=== PATIENT | male | born 1995 | race Caucasian/White ===

== ENCOUNTER 2020-06-17 13:23 | Outpatient (REF) | payer OTHER, SELFPAY | END 2020-06-17 13:24 | disposition home or self-care (01) | LOC: HO.HMGCLDS 13:23 | PROVIDERS: Visit Provider Internal Medicine | DX: Z20.828 Contact with and (suspected) exposure to other viral communicable diseases (principal) | CPT/HCPCS: C9803; U0003 ==

== ENCOUNTER 2021-07-31 09:35 | Outpatient (REF) | payer OTHER, SELFPAY ==
[2021-07-31 10:17] LABS: Appearance Urine CLEAR; Color Urine YELLOW; Glucose Urine UA NEG (NEG); Leukocyte Esterase Urine NEG (NEG); Nitrite Urine NEG (NEG); PH 5.5 (5.0-8.0); Specific Gravity - Urine >= 1.030 (1.005-1.025); Urine Blood NEG (NEG); Urine Ketones NEG (NEG); Urine Protein NEG (NEG-TRACE)
[2021-07-31 10:34] LABS: Hematocrit 45.6 % (42.0-52.0); Mean Corpuscular HGB Conc 35.1 g/dl (31.0-36.0); Mean Corpuscular Hemoglobin 30.4 pg (27.0-33.0); Mean Corpuscular Volume 86.7 fL (80.0-98.0); Mean Platelet Volume 8.9 fL (9.4-12.4); Platelet Count 235 X10*3/uL (160-400); Red Blood Count 5.26 X10*6/uL (4.60-5.80); Red Cell Distribution Width 11.7 % (11.0-16.0); White Blood Count 6.8 X10*3/uL (4.8-10.8)
[2021-07-31 11:20] LABS: Alanine Aminotransferase 26 U/L (0-40); Albumin Level 4.7 g/dL (3.5-5.0); Alkaline Phosphatase 38 U/L (39-117); Anion Gap 10 (12-20); Aspartate Amino Transferase 16 U/L (5-37); Bilirubin Direct 0.3 mg/dL (0.0-0.5); Bilirubin Total 0.7 mg/dL (0.0-1.0); Blood Urea Nitrogen 15 mg/dL (9-16); Calcium 9.9 mg/dL (8.4-10.2); Carbon Dioxide 30 mmol/L (22-29); Chloride 105 mmol/L (96-108); Cholesterol 169 mg/dL; Estimated Glomerular Filt Rate > 60; Glucose Random 72 mg/dL (60-115); HDL Cholesterol 54 mg/dL; LDL Cholesterol Calculated 101 mg/dl; Potassium 4.1 mmol/L (3.3-5.1); Sodium 141 mmol/L (135-145); Total Protein 7.5 g/dL (6.5-8.0); Triglycerides 72 mg/dL
== END 2021-07-31 09:36 | disposition home or self-care (01) ==
LOC: HO.LAB 09:35
PROVIDERS: PCP Internal Medicine; Visit Provider Internal Medicine
DX: K92.1 Melena (principal)
CPT/HCPCS: 36415; 80048; 80061; 80076; 81003; 84443; 85027

== ENCOUNTER 2021-12-10 08:00 | Outpatient (REF) | payer OTHER, SELFPAY ==
[2021-12-10 10:24] LABS: C Reactive Protein < 0.02 mg/dL (< or = 0.50)
[2021-12-10 11:00] LABS: Folate 18.1 ng/mL (> or = 4.0); Vitamin B12 755 pg/mL (200-900)
[2021-12-12 13:36] LABS: Transglutaminase Ab IgG <1.0 U/mL; Transglutaminase IgA <1.0 U/mL
[2021-12-15 12:36] LABS: Vitamin D 25-OH, D2 <4 ng/mL; Vitamin D 25-OH, D3 30 ng/mL; Vitamin D 25-OH, Total 30 ng/mL (30-100)
== END 2021-12-10 08:01 | disposition home or self-care (01) ==
LOC: HO.LAB 08:00
PROVIDERS: PCP Internal Medicine; Referring Provider Internal Medicine; Visit Provider Nurse Practitioner Family
DX: R10.9 Unspecified abdominal pain (principal); K58.2 Mixed irritable bowel syndrome; K62.5 Hemorrhage of anus and rectum; E55.9 Vitamin D deficiency, unspecified
CPT/HCPCS: 36415; 82306; 82607; 82746; 86140; 86364

== ENCOUNTER 2024-07-03 08:27 | Outpatient (REF) | payer OTHER, SELFPAY ==
[2024-07-03 09:15] LABS: MANUAL DIFF FLAG NO
[2024-07-03 09:35] LABS: Basophils Percent Auto 0.5 % (0-2); Eosinophils Absolute Auto 0.3 X10*3/uL (0.0-0.4); Eosinophils Percent Auto 4.3 % (0-4); Hematocrit 48.6 % (42.0-52.0); Hemoglobin 16.7 g/dl (14.0-18.0); Imm Gran Abs Auto 0.03 X10*3/uL (0.00-0.03); Imm Gran Pct Auto 0.5 % (0.0-0.4); Lymphocytes Absolute Auto 2.2 X10*3/uL (1.2-4.9); Lymphocytes Percent Auto 37.4 % (20-40); Mean Corpuscular HGB Conc 34.4 g/dl (31.0-36.0); Mean Corpuscular Hemoglobin 30.3 pg (27.0-33.0); Mean Platelet Volume 9.1 fL (9.4-12.4); Monocytes Absolute Auto 0.5 X10*3/uL (0.1-1.2); Monocytes Percent Auto 8.7 % (2-11); Neutrophils Absolute Auto 2.8 x10*3/uL (2.0-8.3); Neutrophils Percent Auto 48.6 % (45-73); Platelet Count 223 X10*3/uL (160-400); Red Blood Count 5.52 X10*6/uL (4.60-5.80); Red Cell Distribution Width 11.8 % (11.0-16.0); White Blood Count 5.8 X10*3/uL (4.8-10.8)
[2024-07-03 09:44] LABS: Estimated Average Glucose 91 mg/dL; Hemoglobin A1C 121.0612 umol/L; Hemoglobin A1c % 4.8 % (<6.0); Total Hemoglobin (HGBA1C) 4239.1016 umol/L
[2024-07-03 10:11] LABS: Erythrocyte Sedimentation Rate 1 MM/HR (0-15)
[2024-07-03 10:31] LABS: Vitamin D 25-OH Total 41.1 ng/mL (>30)
[2024-07-03 10:32] LABS: Alanine Aminotransferase 25 U/L (0-40); Alkaline Phosphatase 35 U/L (39-117); Anion Gap 13 (12-20); Aspartate Amino Transferase 27 U/L (5-37); Bilirubin Direct 0.3 mg/dL (0.0-0.5); Blood Urea Nitrogen 13 mg/dL (9-16); C Reactive Protein < 0.04 mg/dL (< or = 0.50); Calcium 9.7 mg/dL (8.4-10.2); Carbon Dioxide 28 mmol/L (22-29); Chloride 104 mmol/L (96-108); Cholesterol 166 mg/dL (<200); Estimated Glomerular Filt Rate > 60; Glucose Fasting 106 mg/dL (60-99); HDL Cholesterol 56 mg/dL (>40); LDL Cholesterol Calculated 95 mg/dL (<100); Magnesium 2.2 mg/dL (1.6-2.6); Potassium 4.1 mmol/L (3.3-5.1); Sodium 141 mmol/L (135-145); Total Protein 7.7 g/dL (6.5-8.0); Triglycerides 76 mg/dL (<150)
[2024-07-03 10:34] LABS: Folate 11.8 ng/mL (> or = 4.0); Vitamin B12 563 pg/mL (200-900)
== END 2024-07-03 08:28 | disposition home or self-care (01) ==
LOC: HO.LAB 08:27
PROVIDERS: PCP Internal Medicine; Visit Provider Physician Assistant Medical
DX: Z00.00 Encounter for general adult medical examination without abnormal findings (principal); R79.89 Other specified abnormal findings of blood chemistry; E11.9 Type 2 diabetes mellitus without complications; L60.8 Other nail disorders
CPT/HCPCS: 36415; 80053; 80061; 80076; 82248; 82306; 82607; 82746; 83036; 83735; 84443; 85025; 85652; 86140

== ENCOUNTER 2024-07-03 08:27 | Outpatient (AMB) | payer OTHER, SELFPAY ==
--- NOTE | 2024-07-03 08:28 | MHC.PC.OV ---
Vital Signs 07/03/24 08:30 Height 6 ft 3 in Weight 204 lb 8 oz BMI 25.6 BP 134/60 Blood Pressure Location Lt brachial Position Sitting Pulse 59 Pulse Source Pulse Oximeter Pulse Oximetry (%) 98 Oxygen Delivery Method Room Air Intake Visit Reasons: PE Intake Note: Patient is here today for a physical. Pt decline flu shot today. 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 per policy Accompanied by: Self / Same As Patient Allergies Sulfa (Sulfonamide Antibiotics) [SULFA (SULFONAMIDE ANTIBIOTICS)] Allergy (Unknown, Verified 07/03/24 09:06) SWELLING Medication List - Last Reconciled 07/03/24 by Kate Velazquez PA-C multivitamin (Daily Multi-Vitamin tablet) 1 tab PO DAILY Tobacco use date assessed: 07/03/24 Dental Screening Dental Screen Date: 07/03/24 Did you have a dental visit in the last 12 months?: Yes Did you have a dental problem in the last 6 months where you did not have access to dental care?: No Was dental information given to patient?: Patient has dentist [facility] Medical History (Updated 07/03/24 @ 09:08 by Kate Velazquez PA-C) Nicotine dependence Change in nail appearance Hemorrhoids IBS (irritable bowel syndrome) Annual physical exam Surgical History No pertinent past surgical history Family History Father No problems noted. 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 1. Little interest or pleasure in doing things: not at all 2. Feeling down, depressed, or hopeless: not at all 3. Trouble falling or staying asleep, or sleeping too much: not at all 4. Feeling tired or having little energy: not at all 5. Poor appetite or overeating: not at all 6. Feeling bad about yourself - or that you are a failure or have let yourself or your family down: not at all 7. Trouble concentrating on things, such as reading the newspaper or watching television: not at all 8. Moving or speaking so slowly that other people could have noticed. Or the opposite - being so fidgety or restless that you have been moving around a lot more than usual: not at all 9. Thoughts that you would be better off or of hurting yourself in some way: not at all Total score: 0 Depression Screening Interpretation: Negative Depression Screening Done: Yes Source: Developed by Drs. Florencio Nava, Dayna Yeung, Herrera Sullivan and colleagues, with an educational jet from [employer] Thrive Questionnaire Date Thrive assessed: 07/03/24 I am a: Patient What is your living situation today?: I have a steady place to live Within the past 12 months, did the food you bought not last and you didn't have the money to get more?: Never true Within the past 12 months, did you worry whether your food would run out before you got money to buy more?: Never true Do you have trouble paying for medicines?: No Do you have trouble getting transportation to medical appointments?: No Do you have trouble paying your heating and electricity bill?: No Do you have trouble taking care of your child, family member or friend?: No Do you have trouble with day-to-day activities such as bathing, preparing meals, shopping, managing finances, etc.?: No Are you currently unemployed and looking for a job?: No Are you interested in more education?: No Please select the resources that you would like help with: None Currently or been in a relationship where the following occur: No concerns reported THRIVE Score: 0 AUDIT C Alcohol Use Questionnaire (AUDIT-C) 1. How often do you have a drink containing alcohol?: Monthly or less 2. How many drinks containing alcohol do you have on a typical day when you are drinking?: 1 or 2 3. How often do you have six or more drinks on one occasion?: Never Total Score: 1 JOSE MANUEL-7 AMB Questionnaire JOSE MANUEL-7 Date JOSE MANUEL - 7 assessed: 07/03/24 Feeling nervous, anxious, or on edge: 0 = Not at all Not being able to stop or control worryin = Not at all Worrying too much about different things: 0 = Not at all Trouble relaxin = Not at all Being so restless that it is hard to sit still: 0 = Not at all Becoming easily annoyed or irritable: 0 = Not at all Feeling afraid as if something awful might happen: 0 = Not at all Total JOSE MANUEL-7 score (0-4 normal; 5-9 mild; 10-14 moderate; 15-21 severe): 0 Source: Developed by Drs. Florencio Nava, Dayna Yeung, Herrera Sullivan and colleagues, with an educational jet from [employer] Physical exam (Primary Care) Vital Signs: Last Vital Signs Pulse 59 07/03/24 08:30 BP 134/60 07/03/24 08:30 Pulse Ox 98 07/03/24 08:30 Oxygen Delivery Method Room Air 07/03/24 08:30 BMI result Body Mass Index 25.6 Tobacco/Smoking Status: Tobacco use Status Tobacco use date assessed 07/03/24 07/03/24 08:36 Patient Tobacco Use Status Former Tobacco user 07/03/24 08:36 e-Cigarette/Vaping Use Never Used 07/03/24 08:36 PHQ-9: PHQ-9 Score PHQ-9: Total score 0 07/03/24 08:36 Depression Screening Interpretation: Negative Thrive Assessment: Date of Thrive Assessment Date Thrive assessed 07/03/24 07/03/24 08:36 Currently or been in a relationship where the following occur: No concerns reported Coding Level of Care Code Est Pt Prev Care 18-39y(75946) Diagnoses Annual physical exam Z00.00 IBS (irritable bowel syndrome) K58.9 Hemorrhoids K64.9 Change in nail appearance L60.8 Nicotine dependence F17.200 Assessment & Plan Assessment & Plan (1) Annual physical exam: Code(s): Z00.00 - Encounter for general adult medical examination without abnormal findings Category: Medical (2) IBS (irritable bowel syndrome): Code(s): K58.9 - Irritable bowel syndrome, unspecified Category: Medical (3) Hemorrhoids: Code(s): K64.9 - Unspecified hemorrhoids Category: Medical (4) Change in nail appearance: Code(s): L60.8 - Other nail disorders Category: Medical (5) Nicotine dependence: Code(s): F17.200 - Nicotine dependence, unspecified, uncomplicated Category: Medical Plan Plan - Normal Annual Physical Exam - Evaluate rectal bleeding history with consideration for IBS and dietary triggers. Reiterate importance of dietary adjustments and potential need for medications if symptoms exacerbate. - Nail bed inspection likely secondary to mechanical trauma and potential vitamin deficiency; consider vitamin level labs. - Abdominal palpation reveals muscle development rather than herniation; reassure patient regarding exercise effects. - Order blood work to assess vitamin levels, including Vitamin D, B12, folate, magnesium, thyroid function tests, lipid panel, HbA1c, and CBC for systemic evaluation given family history and symptoms. - Discuss the potential risks of nicotine pouch usage and encourage reduction or cessation due to oral health concerns. Orders: Orders Vitamin D 25-OH Total Today R79.89 - Other specified abnormal findings of blood chemistry Erythrocyte Sedimentation Rate Today Z00.00 - Encounter for general adult medical examination without abnormal findings C Reactive Protein Today Z00.00 - Encounter for general adult medical examination without abnormal findings Hemoglobin A1c Today E11.9 - Type 2 diabetes mellitus without complications Complete Blood Count Auto Diff Today Z00.00 - Encounter for general adult medical examination without abnormal findings Comprehensive [place]. Panel Fast Today Z00.00 - Encounter for general adult medical examination without abnormal findings Vitamin B12 and Folate Today R79.89 - Other specified abnormal findings of blood chemistry TSH reflex Free T4 Today Z00.00 - Encounter for general adult medical examination without abnormal findings Lipid Panel Today Z00.00 - Encounter for general adult medical examination without abnormal findings Liver Panel Today Z00.00 - Encounter for general adult medical examination without abnormal findings Magnesium Today Z00.00 - Encounter for general adult medical examination without abnormal findings Scribe Plan - Not visible on output: History of Present Illness The patient is a 29-year-old male presenting an for annual physical exam. He was seen 2 years ago for rectal bleeding. He reports a history of rectal bleeding previously evaluated by Gastroenterology (GI), where celiac disease was ruled out, and irritable bowel syndrome (IBS) or hemorrhoids were suggested as potential causes. Despite not strictly adhering to previously suggested medications, his symptoms have improved after modifying his diet to a predominantly carnivore diet, consisting mainly of meat, eggs, and broccoli. Bleeding initially occurred once every two to three weeks but has decreased to once every couple of months, correlating with dietary changes. Occasional symptoms include mild, non-painful stomach upset with no associated vomiting or weight loss. 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 He noticed a line on the right thumb nail after accidentally being struck with a hammer. The line has caused concern due to online research about potential vitamin deficiencies but has not been associated with pain or other symptoms. The patient also expressed concern about a potential hernia due to observing a blob-like area on his abdomen. This has caused no pain, but with recent workout regimens, he noticed this change. He denies prior surgical history or a known history of hernia. Social History - Employment: Works for [employer], commuting approximately two and a half hours a day, working night shifts. - Substance Use: Denies smoking cigarettes; consumes alcohol once a month; uses nicotine pouches (9-10 per day). - Exercise: Engages in weight training and a small amount of cardio. - Diet: Primarily follows a carnivore diet with occasional dietary deviations. - Family History: Reports a family history of hemochromatosis (father) and diabetes (mother and grandparents). Review of Systems - Gastrointestinal: Reports occasional bloody stools and mild stomach upset without nausea or vomiting. - Musculoskeletal: Denies abdominal bulge pain; history of right shoulder AC joint separation, resolved. - ENT: Reports occasional difficulty hearing, attributed to possible ADHD. - General: Denies recent, significant weight loss. Physical Exam Appearance: Alert. Oriented X3. No acute distress. Head: Normal external exam. Normocephalic. Atraumatic. No Rodríguez signs noted. No raccoon eyes noted. Eyes: Pupils are equal, round, and reactive to light. Extraocular movements intact. Conjunctiva and sclera normal. Eyelids normal. Ears: External auditory canal normal. Tympanic membranes normal. Throat: Pharynx normal. Uvula midline. Moist mucous membranes. No trismus noted. No drooling noted. No muffled voice noted. Neck: Normal inspection. Neck supple. Full range of motion. No adenopathy. Thyroid Normal. No meningeal signs. No neck mass noted. Cardiovascular: Normal heart rate and rhythm. Heart sound normal. No murmurs noted. Pulses normal throughout. Respiratory: No respiratory distress. Painless inspiration. Breath sounds normal. No wheezes/rales/rhonchi noted. Chest nontender. No accessory muscle usage noted or decreased air movement noted. Abdomen: Soft and nontender. Bowel sounds normal in all 4 quadrants. No distention noted. No organomegaly noted. No visible injury noted. No hernia noted. Back: No costovertebral angle tenderness. Full range of motion noted. Skin: Skin warm and dry. Normal skin color. Normal skin turgor. No rashes/lesions/lacerations noted. Noted lines on the right thumb, possibly due to trauma or vitamin deficiency. Extremities: No lower extremity edema. Extremities exhibit normal range of motion. Extremities nontender. Neuro: Oriented X 3. No motor deficit. No sensory deficit. Reflexes normal. Plan - Normal Annual Physical Exam - Evaluate rectal bleeding history with consideration for IBS and dietary triggers. Reiterate importance of dietary adjustments and potential need for medications if symptoms exacerbate. - Nail bed inspection likely secondary to mechanical trauma and potential vitamin deficiency; consider vitamin level labs. - Abdominal palpation reveals muscle development rather than herniation; reassure patient regarding exercise effects. - Order blood work to assess vitamin levels, including Vitamin D, B12, folate, magnesium, thyroid function tests, lipid panel, HbA1c, and CBC for systemic evaluation given family history and symptoms. - Discuss the potential risks of nicotine pouch usage and encourage reduction or cessation due to oral health concerns. Patient was informed and verbally consented to the use of an ambient scribe for clinic note documentation during this visit. Discussion Notes I discussed the potential causes of the patient's rectal bleeding, emphasizing the role diet plays in managing IBS-like symptoms. We reviewed the improvement noted with the carnivore diet and addressed the patient's nail bed concerns, reassuring him it is most likely a benign consequence of trauma but checking vitamin levels to rule out deficiencies. The perceived abdominal mass was assessed as muscle buildup from workout, with no evidence of hernia. The conversation included discussing family history's implications on health, suggesting regular follow-ups and vital screenings. I advised on precautionary blood work for diabetes and hemochromatosis, and emphasized the importance of maintaining a balanced diet and exercise regimen, while exploring potential alternatives to nicotine pouches. Patient Instructions - Continue dietary management as per the carnivore diet with controlled deviations to manage IBS symptoms. - Monitor stool frequency and characteristics; report significant changes. - Follow up on blood work results for vitamin levels and metabolic functions. - Reconsider the use of nicotine pouches and explore other cessation options. - Remain active with ongoing exercise and watch for any changes in abdominal size or shape. - Seek immediate care if experiencing any new or worsening symptoms, particularly gastrointestinal bleeding.
[2024-07-03 08:30] VITALS: BP 134/60; PULSE 59; O2SAT 98; BMI 25.6
== END 2024-07-03 08:59 | disposition home or self-care (01) ==
PROVIDERS: PCP Internal Medicine; Visit Provider Physician Assistant Medical
DX: Z00.00 Encounter for general adult medical examination without abnormal findings (principal); K58.9 Irritable bowel syndrome, unspecified; K64.9 Unspecified hemorrhoids; L60.8 Other nail disorders; F17.200 Nicotine dependence, unspecified, uncomplicated

== ENCOUNTER 2025-01-04 12:51 | Outpatient (AMB) | payer OTHER, SELFPAY ==
[2025-01-04 12:54] VITALS: BP 110/70; PULSE 72; TEMP 36.9; O2SAT 98; BMI 26.5
--- NOTE | 2025-01-04 12:54 | MHC.OFFWIV ---
Intake Vital Signs 01/04/25 12:54 Height 6 ft 3 in Weight 212 lb 6 oz BMI 26.5 BP 110/70 Blood Pressure Location Lt brachial Position Sitting Pulse 72 Pulse Source Pulse Oximeter Temp 98.5 F Temp Source Oral Pulse Oximetry (%) 98 Oxygen Delivery Method Room Air Intake Visit Reasons: EP Tick bite Patient Tobacco Use Status: Former Tobacco user Allergies Sulfa (Sulfonamide Antibiotics) (SULFA (SULFONAMIDE ANTIBIOTICS)) Allergy (Unknown, Verified 01/04/25 12:55) SWELLING Do you need a note to return to daycare/school/sports/work: Yes HPI HPI Comments History of Present Illness Details History - The patient is a 29-year-old male presenting with a tick bite. - The tick bite occurred two days ago, on Wednesday. - The patient removed the tick himself, noting that some skin was attached to the tick's mouthparts. - The patient has not experienced any symptoms such as fever, chills, or body aches since the bite. - The patient has no prior history of tick bites. - He has no other bites or rashes. - He denies fever, chills, joint pain, CP, or SOB. Physical Exam General: Cooperative, healthy appearing, comfortable, no acute distress and well developed Cardiac: RRR, no m/r/g noted. Respiratory: Normal respiratory effort and able to speak in complete sentences. Skin: Small scabbed flat spot noted on the lower leg anteriorly. No redness, warmth, discharge noted. Neuro: Sensation intact Patient was informed and verbally consented to the use of an ambient scribe for clinic note documentation during this visit. [facility] Medical History (Updated 07/03/24 @ 09:08 by Kate Velazquez PA-C) Nicotine dependence Change in nail appearance Hemorrhoids IBS (irritable bowel syndrome) Annual physical exam Surgical History No pertinent past surgical history Family History Father No problems noted. 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 Cognitive needs: No Hearing needs: No Vision needs: No Review of Systems Const All systems reviewed & are unremarkable except as noted in HPI and below Physical Exam Vital Signs: Last Vital Signs Temp 98.5 F 01/04/25 12:54 Pulse 72 01/04/25 12:54 BP 110/70 01/04/25 12:54 Pulse Ox 98 01/04/25 12:54 Oxygen Delivery Method Room Air 01/04/25 12:54 BMI result Body Mass Index 26.5 Assessment & Plan Assessment & Plan (1) Tick bite: Code(s): W57.XXXA - Bitten or stung by nonvenomous insect and other nonvenomous arthropods, initial encounter Qualifiers: Encounter type: initial encounter Site of tick bite: lower leg Laterality: left Qualified Code(s): S80.862A - Insect bite (nonvenomous), left lower leg, initial encounter; W57.XXXA - Bitten or stung by nonvenomous insect and other nonvenomous arthropods, initial encounter Plan Most likely tick bite 1. Tick Bite - The patient was advised to take doxycycline as a prophylactic measure against Lyme disease. - The patient was informed about the photosensitivity side effect of doxycycline and advised to avoid sun exposure during the course of the medication. - Keep area clean and dry - Watch for bullseye rash, joint pain, fever, or chills Medications: New doxycycline hyclate 100 mg PO bid 14 tabs 0RF 7 days Coding Level of Care Code Est Pt Level 3 (68976) Diagnoses Tick bite of left lower leg, initial encounter S80.862A; W57.XXXA Encounter type: initial encounter Site of tick bite: lower leg Laterality: left
== END 2025-01-04 14:22 | disposition home or self-care (01) ==
PROVIDERS: PCP Internal Medicine; Visit Provider Physician Assistant Medical
DX: S80.862A Insect bite (nonvenomous), left lower leg, initial encounter (principal); W57.XXXA Bitten or stung by nonvenomous insect and other nonvenomous arthropods, initial encounter

== ENCOUNTER → 2025-01-04 12:51 | Outpatient (BNVA) | payer OTHER, SELFPAY | PROVIDERS: PCP Internal Medicine; Visit Provider Physician Assistant Medical | DX: Z13.89 Encounter for screening for other disorder (principal) ==

== ENCOUNTER 2025-07-05 13:28 | Outpatient (AMB) | payer OTHER, SELFPAY ==
--- NOTE | 2025-07-05 13:38 | MHC.PC.OV ---
Vital Signs 07/05/25 13:39 Height 6 ft 3 in Weight 217 lb 8 oz BMI 27.2 BP 100/66 Blood Pressure Location Lt brachial Position Sitting Pulse 85 Pulse Source Pulse Oximeter Temp 97.3 F Temp Source Temporal Artery Scan Pulse Oximetry (%) 98 Oxygen Delivery Method Room Air Intake Visit Reasons: pe Intake Note: Patient is here today for a physical. 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 Biogeographer: Not Required per policy Accompanied by: Self / Same As Patient Allergies Sulfa (Sulfonamide Antibiotics) (SULFA (SULFONAMIDE ANTIBIOTICS)) Allergy (Unknown, Verified 07/05/25 13:59) SWELLING Medication List - Last Reconciled 07/05/25 by Amanuel Singh MD No Known Home Meds Tobacco use date assessed: 07/05/25 Dental Screening Dental Screen Date: 07/05/25 Did you have a dental visit in the last 12 months?: Yes Did you have a dental problem in the last 6 months where you did not have access to dental care?: No Was dental information given to patient?: Patient has dentist HPI HPI Comments History of Present Illness Details History of Present Illness - The patient is a 30-year-old male presenting for an annual physical examination. - He notes a persistent line on his thumbnail that has been present since last year. - The patient has a history of a scrotal cyst, which was noted at the last visit and has since resolved. - He reports using nicotine pouches and is trying to reduce his use. - Blood work from last year was normal. 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 - Substance Use: The patient uses nicotine pouches and is attempting to reduce his use. Results - Labs: Blood work from the previous year was noted to be normal. [facility] Medical History (Updated 07/03/24 @ 09:08 by Kate Velazquez PA-C) Nicotine dependence Change in nail appearance Hemorrhoids IBS (irritable bowel syndrome) Annual physical exam Surgical History No pertinent past surgical history Family History Father No problems noted. 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 1. Little interest or pleasure in doing things: not at all 2. Feeling down, depressed, or hopeless: not at all 3. Trouble falling or staying asleep, or sleeping too much: not at all 4. Feeling tired or having little energy: not at all 5. Poor appetite or overeating: not at all 6. Feeling bad about yourself - or that you are a failure or have let yourself or your family down: not at all 7. Trouble concentrating on things, such as reading the newspaper or watching television: not at all 8. Moving or speaking so slowly that other people could have noticed. Or the opposite - being so fidgety or restless that you have been moving around a lot more than usual: not at all 9. Thoughts that you would be better off or of hurting yourself in some way: not at all Total score: 0 Depression Screening Interpretation: Negative Depression Screening Done: Yes Source: Developed by Drs. Florencio Nava, Dayna Yeung, Herrera Sullivan and colleagues, with an educational jet from [employer]. Thrive Questionnaire Date Thrive assessed: 07/05/25 I am a: Patient What is your living situation today?: I have a steady place to live Within the past 12 months, did the food you bought not last and you didn't have the money to get more?: Never true Within the past 12 months, did you worry whether your food would run out before you got money to buy more?: Never true Do you have trouble paying for medicines?: No Do you have trouble getting transportation to medical appointments?: No Do you have trouble paying your heating and electricity bill?: No Do you have trouble taking care of your child, family member or friend?: No Do you have trouble with day-to-day activities such as bathing, preparing meals, shopping, managing finances, etc.?: No Are you currently unemployed and looking for a job?: No Are you interested in more education?: No Please select the resources that you would like help with: None Currently or been in a relationship where the following occur: No concerns reported THRIVE Score: 0 AUDIT C Alcohol Use Questionnaire (AUDIT-C) 1. How often do you have a drink containing alcohol?: Monthly or less 2. How many drinks containing alcohol do you have on a typical day when you are drinking?: 3 or 4 3. How often do you have six or more drinks on one occasion?: Never Total Score: 2 JOSE MANUEL-7 AMB Questionnaire JOSE MANUEL-7 Date JOSE MANUEL - 7 assessed: 07/05/25 Feeling nervous, anxious, or on edge: 0 = Not at all Not being able to stop or control worryin = Not at all Worrying too much about different things: 0 = Not at all Trouble relaxin = Not at all Being so restless that it is hard to sit still: 0 = Not at all Becoming easily annoyed or irritable: 0 = Not at all Feeling afraid as if something awful might happen: 0 = Not at all Total JOSE MANUEL-7 score (0-4 normal; 5-9 mild; 10-14 moderate; 15-21 severe): 0 Source: Developed by Drs. Florencio Nava, Dayna Yeung, Herrera Sullivan and colleagues, with an educational jet from [employer]. Review of Systems Narrative Review of Systems - General: Denies any specific health concerns, but notes working night shifts. - Integumentary: Reports a persistent line on his thumbnail for at least one year. - Genitourinary: Denies any trouble with urination. Physical exam (Primary Care) Vital Signs: Last Vital Signs Temp 97.3 F 07/05/25 13:39 Pulse 85 07/05/25 13:39 BP 100/66 07/05/25 13:39 Pulse Ox 98 07/05/25 13:39 Oxygen Delivery Method Room Air 07/05/25 13:39 BMI result Body Mass Index 27.2 Tobacco/Smoking Status: Tobacco use Status Tobacco use date assessed 07/05/25 07/05/25 13:43 Patient Tobacco Use Status Former Tobacco user 07/05/25 13:43 e-Cigarette/Vaping Use Never Used 07/05/25 13:43 PHQ-9: PHQ-9 Score PHQ-9: Total score 0 07/05/25 13:43 Depression Screening Interpretation: Negative Thrive Assessment: Date of Thrive Assessment Date Thrive assessed 07/05/25 07/05/25 13:43 Currently or been in a relationship where the following occur: No concerns reported Narrative Physical Exam General: Cooperative and healthy appearing Nutritional Appearance: Well nourished Orientation/consciousness: Patient oriented x3 Limitations: No limitations Head: Normal to inspection General: Appearance normal, both eyes and all related structures Neck: Normal visual inspection Chest: Normal palpation of entire chest wall Respiratory: Normal respiratory effort Neurology: Patient oriented x3 Coding Level of Care Code Est Pt Prev Care [id number](80047) Add On Preventative Visit Only Diagnoses Annual physical exam Z00.00 Assessment & Plan Assessment & Plan (1) Annual physical exam: Code(s): Z00.00 - Encounter for general adult medical examination without abnormal findings Category: Medical Plan Plan - Annual Labs: Will repeat blood work. - Health Maintenance: Annual physical examination completed. - Vaccinations: Patient declined the influenza vaccine at this visit. Discussion Notes I saw the patient for his annual physical. I advised him that the persistent line on his thumbnail is unlikely to resolve. We reviewed that his blood work from last year was normal, and I recommended repeating it with instructions for the patient to go for fasting labs. We discussed his use of nicotine pouches and his efforts to cut down. It was confirmed that the scrotal cyst from the prior year has resolved and he has no current trouble with urination. The patient declined a flu shot during this visit. Patient Instructions - Please go for fasting blood work at the office downstairs. - Continue your efforts to reduce your use of nicotine pouches. Orders: Orders Basic Metabolic Panel Today Z00.00 - Encounter for general adult medical examination without abnormal findings Complete Blood Count no Diff Today Z00.00 - Encounter for general adult medical examination without abnormal findings Lipid Panel Today Z00.00 - Encounter for general adult medical examination without abnormal findings Thyroid Stimulating Hormone Today Z00.00 - Encounter for general adult medical examination without abnormal findings Liver Panel Today Z00.00 - Encounter for general adult medical examination without abnormal findings UA and rflx microscopic Today Z00.00 - Encounter for general adult medical examination without abnormal findings
[2025-07-05 13:39] VITALS: BP 100/66; PULSE 85; TEMP 36.3; O2SAT 98; BMI 27.2
== END 2025-07-05 13:59 | disposition home or self-care (01) ==
LOC: HO.HMCH 13:29
PROVIDERS: PCP Internal Medicine; Visit Provider Internal Medicine
DX: Z00.00 Encounter for general adult medical examination without abnormal findings (principal)